=== PATIENT | male | born 1995 | race African-American/Black ===

== ENCOUNTER 2018-01-15 11:44 | Emergency (ER) | payer BC, OTHER ==
[~2018-01-15] VITALS: Ht 172.7 cm; Wt 52.2 kg
[2018-01-15 12:03] VITALS: BP 129/69
--- NOTE | 2018-01-15 12:29 | Emergency Room Report ---
History of Present Illness General Chief Complaint: Abdominal Pain Source: Patient Present Illness HPI 22-year-old male patient presents to ER complaining of vomiting and abdominal pain since Monday. Patient reports that he has had similar symptoms intermittently since last July. Patient reports that he was seen at [facility] on Monday for similar symptoms, states she was given morphine for pain, was discharged with diagnosis of colitis and not given any medications to go home with; states was previously seen in [facility] prior to Monday and discharged with diagnosis at that time. reports had labs drawn at that time and were negative. Patient reports that he schedule an appointment with his primary care physician on the of january. Patient reports vomiting, diarrhea, denies any blood in his vomit or stool. Patient reports not being able to eat secondary to symptoms. Patient reports no history of acid reflux. Patient reports symptoms usually begin after eating spicy foods. denies fever, chest pain, shortness of breath. reports last episode of vomiting this morning. denies dysuria, hematuria. patient denies history of STI, currently in a monogamous with single partner. denies penile discharge testicular pain or swelling. Allergies: Coded Allergies: No Known Allergies (Unverified , 01/15/18) Patient History Past Medical History: see triage record Reviewed Nursing Documentation: PMH: Agreed; PSxH: Agreed Nursing Documentation-PMH Hx Gastrointestinal Problems: Yes - Collitis Review of Systems All Other Systems: negative except mentioned in HPI Physical Exam Vital Signs Date Time Temp Pulse Resp B/P (MAP) Pulse Ox O2 Delivery O2 Flow Rate FiO2 01/15/18 11:53 98.6 66 18 131/70 99 Room Air 98.6 Sp02 EP Interpretation: reviewed, normal General Appearance: well appearing, no apparent distress, alert, GCS 15, non- toxic Head: normocephalic, atraumatic Eyes: bilateral eye normal inspection, bilateral eye PERRL ENT: hearing grossly normal, normal pharynx, no angioedema, normal voice, uvula midline, moist mucus membranes Neck: full range of motion Respiratory: lungs clear, normal breath sounds, no rhonchi, no respiratory distress, no accessory muscle use, no wheezing, speaking full sentences Cardiovascular #1: regular rate, rhythm, no edema Gastrointestinal: soft, no mass, non-distended, no guarding, no rebound, tenderness - RUQ, other - negative Rovsing, negative Obutrator, negative Danielle Genitourinary: no CVA tenderness Musculoskeletal: back normal, digits/nails normal, gait/station normal, normal range of motion, non-tender Neurologic: alert, oriented x3, responsive, motor strength/tone normal, sensory intact Psychiatric: mood/affect normal Skin: no rash Medical Decision Making PA Attestation Dr. Osorio is my supervising Physician whom patient management has been discussed with. Diagnostic Impression: Primary Impression: Urinary tract infection Additional Impression: Vomiting ER Course Pt. presents to the ED c/o abdominal pain. Ddx considered but are not limited to cholelithiasis, cholecystitis, pancreatitis, GERD, colitis. Begin abdominal pain workup. Provided patient with pain medication. negative Rovsing, negative obturator low suspicion for appendicitis. Patient complaining of right upper quadrant pain, tenderness to palpation, negative Danielle sign, ultrasound to rule out underlying etiology. Vital signs: are WNL, pt. is afebrile ORDERS: Ordered labs, US of gallbladder. Ordered GI cocktail, Zofran and Toradol for pain. ER COURSE: CBC unremarkable, no elevation in WBC. CMP unremarkable, no elevation in liver enzymes. Lipase WNL UA positive for 5-10 WBCs, leukocyte esterase, occasional bacteria and squamous epithelial cells, will provide tx for UTI. Discussed laboratory results with patient, no elevation in liver enzymes., no elevation in WBC, lipase WNL. Informed patient that due to relief of symptoms and negative labs, ultrasound of gallbladder may not be required at this time. Discussed with patient, patient OK to not have US performed at this time, will follow up outpatient for treatment and imaging. patient is okay with receiving outpatient imaging.. Pt.will follow up at scheduled appointment. Patient instructed to follow-up with physician and discuss referral to GI. Patient may have underlying etiology such as GERD or IBS. Patient needs further follow-up and diagnosis with specialist. patient reports understanding and agreement treatment plan. Advised on BRAT diet. Avoid spicy foods. Patient reports relief of pain symptoms with medication. If concern for STI go to STI clinic for further testing and treatment, patient denies concern for STI at this time Patient resting comfortably in bed, ready for discharge, nontoxic appearing, texting on phone, talking without difficulty. Patient currently resting in bed, in no acute distress. Patient reports feeling better. DISCHARGE: Rx provided for Zofran for nausea Rx provided for Tylenol for pain Rx provided for Macrobid for UTI At this time pt. is stable for d/c to home. patient is resting comfortably, no acute distress, nontoxic-appearing, talking and breathing without difficulty. Rx provided to patient. Patient to take medications as instructed Will provide with patient care instructions and any necessary prescriptions. Care plan and follow-up instructions provided. Patient instructed to follow-up with primary care provider in 3 - 5 days. Patient questions asked and answered. ER precautions given. Patient instructed to return to ER immediately for any new or worsening of symptoms including but not limited to increasing SOB, persistent fever, worsening of pain symptoms, intractable vomiting, blood in stool, urine, and/or emesis. - Please note that this Emergency Department Report was dictated using [employer] sales professional technology software, occasionally this can lead to erroneous entry secondary to interpretation by the dictation equipment. Labs Test 01/15/18 12:40 01/15/18 13:20 White Blood Count 7.2 K/UL (4.8-10.8) Red Blood Count 4.62 M/UL (4.70-6.10) Hemoglobin 13.8 G/DL (14.2-18.0) Hematocrit 40.7 % (42.0-52.0) Mean Corpuscular Volume 88 FL (80-99) Mean Corpuscular Hemoglobin 30.0 PG (27.0-31.0) Mean Corpuscular Hemoglobin Concent 34.0 G/DL (32.0-36.0) Red Cell Distribution Width 11.0 % (11.6-14.8) Platelet Count 220 K/UL (150-450) Mean Platelet Volume 8.9 FL (6.5-10.1) Neutrophils (%) (Auto) 78.6 % (45.0-75.0) Lymphocytes (%) (Auto) 12.0 % (20.0-45.0) Monocytes (%) (Auto) 9.0 % (1.0-10.0) Eosinophils (%) (Auto) 0.0 % (0.0-3.0) Basophils (%) (Auto) 0.5 % (0.0-2.0) Sodium Level 136 MMOL/L (136-145) Potassium Level 3.7 MMOL/L (3.5-5.1) Chloride Level 99 MMOL/L (98-107) Carbon Dioxide Level 25 MMOL/L (21-32) Anion Gap 12 mmol/L (5-15) Blood Urea Nitrogen 6 mg/dL (7-18) Creatinine 1.0 MG/DL (0.55-1.30) Estimat Glomerular Filtration Rate > 60 mL/min (>60) Glucose Level 94 MG/DL (74-106) Calcium Level 9.4 MG/DL (8.5-10.1) Total Bilirubin 0.9 MG/DL (0.2-1.0) Aspartate Amino Transf (AST/SGOT) 30 U/L (15-37) Alanine Aminotransferase (ALT/SGPT) 42 U/L (12-78) Alkaline Phosphatase 79 U/L (46-116) Total Protein 8.2 G/DL (6.4-8.2) Albumin 4.3 G/DL (3.4-5.0) Globulin 3.9 g/dL Albumin/Globulin Ratio 1.1 (1.0-2.7) Lipase 105 U/L (73-393) Urine Color Yellow Urine Appearance Clear Urine pH 6 (4.5-8.0) Urine Specific [place] 1.025 (1.005-1.035) Urine Protein 2+ (NEGATIVE) Urine Glucose (UA) Negative (NEGATIVE) Urine Ketones 4+ (NEGATIVE) Urine Occult Blood Negative (NEGATIVE) Urine Nitrite Negative (NEGATIVE) Urine Bilirubin Negative (NEGATIVE) Urine Urobilinogen 1 MG/DL (0.0-1.0) Urine Leukocyte Esterase 2+ (NEGATIVE) Urine RBC 0 /HPF (0 - 0) Urine WBC 5-10 /HPF (0 - 0) Urine Squamous Epithelial Cells Occasional /LPF Urine Bacteria Occasional /HPF (NONE) Urine Mucus Few /LPF (NONE/OCC) CT/MRI/US Diagnostic Results CT/MRI/US Diagnostic Results : Imaging Test Ordered: US gallbladder Last Vital Signs Date Time Temp Pulse Resp B/P (MAP) Pulse Ox O2 Delivery O2 Flow Rate FiO2 01/15/18 11:53 98.6 66 18 131/70 99 Room Air 98.6 Disposition: HOME, SELF-CARE Condition: Stable Scripts Nitrofurantoin Monohyd/M-Cryst* (MACROBID 100 MG*) 100 Mg Capsule 100 MG ORAL EVERY 12 HOURS for 7 Days, #14 CAP Prov: Solitario Aquino 01/15/18 Ondansetron* (ZOFRAN*) 4 Mg Tablet 4 MG ORAL Q6H PRN for Nausea & Vomiting, #4 TAB Prov: Solitario Aquino 01/15/18 Acetaminophen* (TYLENOL EXTRA STRENGTH*) 500 Mg Tablet 500 MG ORAL Q8H PRN for Prn Headache/Temp > 101, #30 TAB 0 Refills Prov: Solitario Aquino 01/15/18 Patient Instructions: Gastritis, Adult, Gastroesophageal Reflux Disease, Adult , Nausea and Vomiting, Adult, [id number], Urinary Tract Infection, Easy-to- Read Additional Instructions: Followup with primary care provide for further treatment and discuss referral to GI. Keep food journal of foods eaten and times of symptom onset. Take medications as directed. Patient questions asked and answered. ER precautions given, patient instructed to return to ER immediately for any new or worsening of symptoms including but not limited to chest pain, SOB, abdominal pain, blood in vomit. Drink fluids as tolerated to prevent dehydration. Take Tylenol OTC for pain, easier on stomach. Avoid spicy foods, avoid dairy. Do not eat late night meals. Elevate head of bed when sleeping. BRAT diet: bananas, rice, apple sauce, toast. Solitario Aquino Jan 15, 2018 12:29
[2018-01-15] MEDS ORDERED: Mylanta II UD 30ml ORAL ONE (12:30)
[2018-01-15] MEDS ORDERED: Ketorolac 60mg Inj IM ONE (12:30)
[2018-01-15] MEDS ORDERED: Dicyclomine HCl 10mg/5ml oral soln ORAL ONE (12:30)
[2018-01-15] MEDS ORDERED: Lidocaine 2% Visc 15ml soln ORAL ONE (12:30)
[2018-01-15 12:53] LABS: BASOPHILS % (AUTO) 0.5 % (0.0-2.0); HEMATOCRIT 40.7 % (42.0-52.0); HEMOGLOBIN 13.8 G/DL (14.2-18.0); MEAN CORPUSCULAR VOLUME 88 FL (80-99); NEUTROPHILS % (AUTO) 78.6 % (45.0-75.0); PLATELET COUNT 220 K/UL (150-450); RED BLOOD COUNT 4.62 M/UL (4.70-6.10); WHITE BLOOD COUNT 7.2 K/UL (4.8-10.8)
[2018-01-15 13:05] LABS: ANION GAP 12 mmol/L (5-15); BLOOD UREA NITROGEN 6 mg/dL (7-18); CALCIUM 9.4 MG/DL (8.5-10.1); CARBON DIOXIDE 25 MMOL/L (21-32); CHLORIDE 99 MMOL/L (98-107); POTASSIUM 3.7 MMOL/L (3.5-5.1); SODIUM 136 MMOL/L (136-145)
[2018-01-15 13:10] LABS: ALANINE AMINOTRANSFERASE 42 U/L (12-78); ALBUMIN 4.3 G/DL (3.4-5.0); ALBUMIN/GLOBULIN RATIO 1.1 (1.0-2.7); ALKALINE PHOSPHATASE 79 U/L (46-116); ASPARTATE AMINO TRANSFERASE 30 U/L (15-37); BILIRUBIN,TOTAL 0.9 MG/DL (0.2-1.0)
[2018-01-15 13:36] LABS: APPEARANCE,URINE CLEAR; BILIRUBIN, URINE NEGATIVE (NEGATIVE); GLUCOSE, URINE (UA) NEGATIVE (NEGATIVE); KETONES,URINE 4+ (NEGATIVE); LEUKOCYTE ESTERASE ,URINE 2+ (NEGATIVE); NITRITE,URINE NEGATIVE (NEGATIVE); PH,URINE 6 (4.5-8.0); PROTEIN,URINE 2+ (NEGATIVE); UROBILINOGEN,URINE 1 MG/DL (0.0-1.0)
[2018-01-15 13:46] LABS: COLOR,URINE YELLOW
[2018-01-15] MEDS ORDERED: ZOFRAN4 M3 ORAL (14:15)
[2018-01-15] MEDS ORDERED: TYLENOL EXTRA500 MG ORAL (14:15)
[2018-01-15] MEDS ORDERED: NITROFURANTOIN100 M2 ORAL (14:15)
[2018-01-15 15:35] VITALS: BP 134/77
[2018-01-15 15:40] VITALS: BP 129/69
== END 2018-01-15 16:06 | disposition home or self-care (01) ==
LOC: EMR 12:31
DX: N39.0 Urinary tract infection, site not specified (principal); R11.10 Vomiting, unspecified
CPT/HCPCS: 36415; 80053; 81003; 83690; 85025; 96372; 96374; 99284

== ENCOUNTER 2018-04-12 12:28 | Emergency (ER) | payer SELFPAY ==
[~2018-04-12] VITALS: Ht 172.7 cm; Wt 49.9 kg
[~2018-04-12 12:28] MED LIST: NITROFURANTOIN100 M2 ORAL; TYLENOL EXTRA500 MG ORAL; ZOFRAN4 M3 ORAL
[2018-04-12] MEDS ORDERED: Isovue-300 100ml vial INJ PRN (13:00)
--- NOTE | 2018-04-12 13:07 | Emergency Room Report ---
History of Present Illness General Chief Complaint: Vomiting Source: Patient Present Illness HPI 22-year-old male presents to the emergency department complaining of 10 out of 10 in severity abdominal pain with N/V and some tenderness 2 days. Patient reports history of colitis denies diarrhea and reports constipation. Last bowel movement was on Monday. Patient denies blood in the vomit or stool and he denies black tarry stools. Patient estimates that he has vomited approximately 3 times today. Patient reports tenderness primarily in the left lower quadrant but is also diffuse across the abdomen. Patient denies fevers, reports chills. He denies recent travel or ill contacts. Allergies: Coded Allergies: No Known Allergies (Unverified , 01/15/18) Patient History Past Medical History: see triage record, other - colitis Past Surgical History: none Pertinent Family History: none Immunizations: UTD Reviewed Nursing Documentation: PMH: Agreed; PSxH: Agreed Nursing Documentation-PM Past Medical History: No History, Except For Hx Gastrointestinal Problems: Yes - Collitis Review of Systems All Other Systems: negative except mentioned in HPI Physical Exam Vital Signs Date Time Temp Pulse Resp B/P (MAP) Pulse Ox O2 Delivery O2 Flow Rate FiO2 04/12/18 12:32 98.3 67 18 130/71 98 Room Air 98.2 Sp02 EP Interpretation: reviewed, normal General Appearance: alert, GCS 15, non-toxic, mild distress, thin Head: normocephalic, atraumatic Eyes: bilateral eye normal inspection, bilateral eye PERRL ENT: hearing grossly normal, normal voice Neck: full range of motion Respiratory: lungs clear, normal breath sounds, speaking full sentences Cardiovascular #1: regular rate, rhythm, normal capillary refill Gastrointestinal: normal bowel sounds, soft, non-distended, no guarding, tenderness - diffuse but primarily in the LLQ Rectal: deferred Genitourinary: normal inspection, no CVA tenderness Musculoskeletal: back normal, gait/station normal, normal range of motion, non- tender Neurologic: alert, oriented x3, responsive, motor strength/tone normal, sensory intact, normal gait, speech normal, grossly normal Psychiatric: judgement/insight normal Skin: normal color, no rash, warm/dry, well hydrated Medical Decision Making PA Attestation Dr. Curry is my supervising physician whom pt. management has been discussed with. Diagnostic Impression: Primary Impression: Abdominal pain Qualified Codes: R10.84 - Generalized abdominal pain Additional Impressions: Vomiting Qualified Codes: R11.2 - Nausea with vomiting, unspecified Gastroenteritis ER Course 22-year-old male presents to the emergency department complaining of 10 out of 10 in severity abdominal pain with N/V and some tenderness 2 days. Patient reports history of colitis denies diarrhea and reports constipation. Last bowel movement was on Monday. Patient denies blood in the vomit or stool and he denies black tarry stools. Patient estimates that he has vomited approximately 3 times today. Patient reports tenderness primarily in the left lower quadrant but is also diffuse across the abdomen. Patient denies fevers, reports chills. He denies recent travel or ill contacts. Ddx considered but are not limited to Diverticulitis, acute appy, diarrhea,UC, PUD, GE, pancreatitis, gallstone, colitis, diverticulitis/losis, electrolyte imbalance, dehydration. Vital signs: are WNL, pt. is afebrile H&PE are most consistent with possible colitis exacerbation, will perform Labs and imaging to r/o more serious causes. PE: Diffuse tenderness, abdomen is soft , normal BS in all 4 quadrants, LLQ most tender. ORDERS: -CBC, CMP, lipase: unremarkable -UA:unremarkable ED INTERVENTIONS: -- 1000NS, -Zofran IV 4 mg - Pepcid IV 20mg Pt. able to tolerate oral fluids. Reports improvement of symptoms after ED interventions. pt. is given strict ED return precautions for worsening or new symptoms. otherwise to follow up with Pcp DISCHARGE: At this time pt. is stable for d/c to home. Will provide printed patient care instructions, and any necessary prescriptions. Care plan and follow up instructions have been discussed with the patient prior to discharge. Labs Test 04/12/18 12:47 04/12/18 13:00 04/12/18 14:40 Sodium Level 137 MMOL/L (136-145) Potassium Level 3.6 MMOL/L (3.5-5.1) Chloride Level 100 MMOL/L (98-107) Carbon Dioxide Level 24 MMOL/L (21-32) Anion Gap 13 mmol/L (5-15) Blood Urea Nitrogen 13 mg/dL (7-18) Creatinine 0.9 MG/DL (0.55-1.30) Estimat Glomerular Filtration Rate > 60 mL/min (>60) Glucose Level 98 MG/DL (74-106) Calcium Level 9.9 MG/DL (8.5-10.1) Total Bilirubin 0.9 MG/DL (0.2-1.0) Aspartate Amino Transf (AST/SGOT) 28 U/L (15-37) Alanine Aminotransferase (ALT/SGPT) 32 U/L (12-78) Alkaline Phosphatase 65 U/L (46-116) Total Protein 8.7 G/DL (6.4-8.2) Albumin 4.3 G/DL (3.4-5.0) Globulin 4.4 g/dL Albumin/Globulin Ratio 1.0 (1.0-2.7) Lipase 146 U/L (73-393) White Blood Count 6.0 K/UL (4.8-10.8) Red Blood Count 5.08 M/UL (4.70-6.10) Hemoglobin 14.1 G/DL (14.2-18.0) Hematocrit 42.8 % (42.0-52.0) Mean Corpuscular Volume 84 FL (80-99) Mean Corpuscular Hemoglobin 27.7 PG (27.0-31.0) Mean Corpuscular Hemoglobin Concent 32.9 G/DL (32.0-36.0) Red Cell Distribution Width 11.3 % (11.6-14.8) Platelet Count 242 K/UL (150-450) Mean Platelet Volume 8.3 FL (6.5-10.1) Neutrophils (%) (Auto) 53.4 % (45.0-75.0) Lymphocytes (%) (Auto) 33.2 % (20.0-45.0) Monocytes (%) (Auto) 11.8 % (1.0-10.0) Eosinophils (%) (Auto) 0.6 % (0.0-3.0) Basophils (%) (Auto) 1.1 % (0.0-2.0) Urine Color Yellow Urine Appearance Clear Urine pH 6 (4.5-8.0) Urine Specific [place] 1.025 (1.005-1.035) Urine Protein 1+ (NEGATIVE) Urine Glucose (UA) Negative (NEGATIVE) Urine Ketones 3+ (NEGATIVE) Urine Occult Blood Negative (NEGATIVE) Urine Nitrite Negative (NEGATIVE) Urine Bilirubin Negative (NEGATIVE) Urine Urobilinogen 1 MG/DL (0.0-1.0) Urine Leukocyte Esterase 1+ (NEGATIVE) Urine RBC 0-2 /HPF (0 - 0) Urine WBC 2-4 /HPF (0 - 0) Urine Squamous Epithelial Cells Few /LPF (NONE/OCC) Urine Bacteria Few /HPF (NONE) CT/MRI/US Diagnostic Results CT/MRI/US Diagnostic Results : Imaging Test Ordered: CT Abdoment and Pelvis with IV and Oral Contrast Impression "Impression is essentially unremarkable exam. No acute or significant abnormality demonstrated." Per official radiology report- Please see report for specific details. Last Vital Signs Date Time Temp Pulse Resp B/P (MAP) Pulse Ox O2 Delivery O2 Flow Rate FiO2 04/12/18 12:32 98.3 67 18 130/71 98 Room Air 98.2 Disposition: HOME, SELF-CARE Condition: Stable Scripts Ondansetron* (ZOFRAN*) 4 Mg Tablet 4 MG ORAL Q6H PRN for Nausea & Vomiting, #15 TAB Prov: Sydney Chowdhury 04/12/18 Docusate Sodium* (COLACE*) 100 Mg Capsule 100 MG ORAL THREE TIMES A DAY, #30 CAP Prov: Sydney Chowdhury 04/12/18 Lidocaine HCl 2% Viscous (Lidocaine HCl 2% Viscous) 100 Ml Solution 15 ML ORAL QID, #200 ML Prov: Sydney Chowdhury 04/12/18 Referrals: NOT CHOSEN IPA/MD,REFERRING (PCP) Departure Forms: Return to Work Return to Work Date: Apr 14, 2018 Work Restrictions: None Other Restrictions: please excuse from monday, symptoms have been intermittent. Return to Full Activity: Apr 14, 2018 Patient Instructions: Nausea and Vomiting, Adult Additional Instructions: Take medications as directed. Follow up with a Primary Care Provider in 3days, even if your symptoms have resolved. --Please review list of primary care clinics, if you do not already have a primary care provider Return sooner to ED if new symptoms occur, or current symptoms become worse. - Please note that this Emergency Department Report was dictated using [employer] technology software, occasionally this can lead to erroneous entry secondary to interpretation by the dictation equipment. Sydney Chowdhury Apr 12, 2018 13:07
[2018-04-12 13:08] LABS: BASOPHILS % (AUTO) 1.1 % (0.0-2.0); EOSINOPHILS % (AUTO) 0.6 % (0.0-3.0); HEMATOCRIT 42.8 % (42.0-52.0); HEMOGLOBIN 14.1 G/DL (14.2-18.0); LYMPHOCYTES % (AUTO) 33.2 % (20.0-45.0); MEAN CORPUSCULAR VOLUME 84 FL (80-99); MONOCYTES % (AUTO) 11.8 % (1.0-10.0); NEUTROPHILS % (AUTO) 53.4 % (45.0-75.0); PLATELET COUNT 242 K/UL (150-450); RED BLOOD COUNT 5.08 M/UL (4.70-6.10); RED CELL DISTRIBUTION WIDTH 11.3 % (11.6-14.8)
[2018-04-12] MEDS ORDERED: Morphine Sulfate 4mg/ml Inj IVP ONE (13:15)
[2018-04-12 13:23] VITALS: BP 101/79
[2018-04-12 13:32] LABS: ANION GAP 13 mmol/L (5-15); BLOOD UREA NITROGEN 13 mg/dL (7-18); CALCIUM 9.9 MG/DL (8.5-10.1); CARBON DIOXIDE 24 MMOL/L (21-32); CHLORIDE 100 MMOL/L (98-107); CREATININE 0.9 MG/DL (0.55-1.30); POTASSIUM 3.6 MMOL/L (3.5-5.1); SODIUM 137 MMOL/L (136-145)
[2018-04-12 13:37] LABS: ALANINE AMINOTRANSFERASE 32 U/L (12-78); ALBUMIN 4.3 G/DL (3.4-5.0); ALKALINE PHOSPHATASE 65 U/L (46-116); ASPARTATE AMINO TRANSFERASE 28 U/L (15-37); BILIRUBIN,TOTAL 0.9 MG/DL (0.2-1.0)
[2018-04-12 15:26] LABS: APPEARANCE,URINE CLEAR; BILIRUBIN, URINE NEGATIVE (NEGATIVE); GLUCOSE, URINE (UA) NEGATIVE (NEGATIVE); KETONES,URINE 3+ (NEGATIVE); LEUKOCYTE ESTERASE ,URINE 1+ (NEGATIVE); NITRITE,URINE NEGATIVE (NEGATIVE); PH,URINE 6 (4.5-8.0); PROTEIN,URINE 1+ (NEGATIVE); UROBILINOGEN,URINE 1 MG/DL (0.0-1.0)
[2018-04-12 15:30] LABS: COLOR,URINE YELLOW
--- NOTE | 2018-04-12 17:10 | Diagnostic Imaging Report ---
Clinical Indication: Left lower quadrant abdominal pain, nausea, vomiting x3 days Technique: Patient given oral contrast. IV administration nonionic contrast. Venous phase spiral acquisition obtained through the abdomen and pelvis. Multiplanar reconstructions were generated. Total dose length product 420.99 mGycm. CTDIvol(s) 8.53 mGy. Dose reduction achieved using automated exposure control Comparison: none Findings: Bowel loops are well opacified. What may be a normal gas-filled appendix is equivocal visualized; no definite findings to suggest acute appendicitis are evident. No evidence of diverticulosis or diverticulitis. No small bowel distention or small bowel wall thickening. The distal esophagus, stomach, duodenum are unremarkable. The gallbladder, liver, bile ducts, pancreas, spleen, adrenals, kidneys are all unremarkable. No pelvic mass or adenopathy. No mesenteric or retroperitoneal mass or adenopathy. The included lung bases are clear. The bones are unremarkable. Impression: Essentially unremarkable exam. No acute or significant abnormality demonstrated Only equivocal visualization of normal appendix, but no findings to suggest acute appendicitis The CT scanner at [facility] is accredited by the [employer] and the scans are performed using protocols designed to limit radiation exposure to as low as reasonably achievable to attain images of sufficient resolution adequate for diagnostic evaluation.
[2018-04-12] MEDS ORDERED: LIDOCAINE VISC100 ML ORAL (17:26)
[2018-04-12] MEDS ORDERED: ZOFRAN4 M3 ORAL (17:26)
[2018-04-12] MEDS ORDERED: COLACE100 MG ORAL (17:26)
[2018-04-12] MEDS ORDERED: Mylanta II UD 30ml ORAL ONE (17:30)
[2018-04-12] MEDS ORDERED: Lidocaine 2% Visc 15ml soln ORAL ONE (17:30)
[2018-04-12 17:38] VITALS: BP 107/77
== END 2018-04-12 17:39 | disposition home or self-care (01) ==
LOC: EMR 12:52
DX: K52.9 Noninfective gastroenteritis and colitis, unspecified (principal); R11.2 Nausea with vomiting, unspecified
CPT/HCPCS: 36415; 74177; 80053; 81003; 83690; 85025; 99284; J2270; J2405; Q9967; S0028

== ENCOUNTER 2018-08-17 09:14 | Emergency (ER) | payer SELFPAY ==
[~2018-08-17] VITALS: Ht 172.7 cm; Wt 53.5 kg
[~2018-08-17 09:14] MED LIST changes: +COLACE100 MG ORAL; +LIDOCAINE VISC100 ML ORAL
--- NOTE | 2018-08-17 09:43 | Emergency Room Report ---
History of Present Illness General Chief Complaint: Abdominal Pain Source: Patient Present Illness HPI Patient just with complaints of epigastric abdominal pain Cramping sensation involving vomiting and diarrhea Symptoms ongoing since last Monday Denies any chest pain denies any fevers or chills Patient has had multiple episodes of this abdominal pain in the past Patient's girlfriend also provided some input There was no reports of fevers Patient has not seen a specialist for the abdominal pain he had He does report frequent marijuana use Allergies: Coded Allergies: No Known Allergies (Unverified , 01/15/18) Patient History Past Medical History: see triage record Pertinent Family History: none Reviewed Nursing Documentation: PMH: Agreed; PSxH: Agreed Nursing Documentation-PMH Hx Gastrointestinal Problems: Yes - Collitis Review of Systems All Other Systems: negative except mentioned in HPI Physical Exam Vital Signs Date Time Temp Pulse Resp B/P (MAP) Pulse Ox O2 Delivery O2 Flow Rate FiO2 08/17/18 09:19 98.2 82 20 123/78 98 Room Air Sp02 EP Interpretation: reviewed, normal General Appearance: other - Upon initial arrival the patient is ambulate without any focal deficit or discomfort, upon initial evaluation patient appears to be grimacing and uncomfortable Head: normocephalic, atraumatic Eyes: bilateral eye PERRL, bilateral eye EOMI ENT: normal pharynx Neck: full range of motion, supple Respiratory: lungs clear, no respiratory distress, no retraction Cardiovascular #1: regular rate, rhythm Gastrointestinal: soft, other - With slight placement of the stethoscope for all sounds patient expresses discomfort and grimaces, otherwise the abdomen itself is soft with appropriate bowel sounds Musculoskeletal: normal inspection Neurologic: alert, oriented x3, responsive Skin: normal color, no rash Lymphatic: no adenopathy Medical Decision Making Diagnostic Impression: Primary Impression: Abdominal pain Additional Impression: Adverse reaction to cannabis ER Course With the history exam and presentation, multiple differentials considered, including but not limited to appendicitis, gastritis, cholecystitis, diverticulitis Patient's lower abdomen is nontender without any evidence of clinical appendicitis Patient does not appear dehydrated Was provided with antibiotics After repeat evaluation patient remains medically stable patient has had previous extensive workup At this time the exam does not reveal any acute pathology And patient stable for close outpatient follow-up Last Vital Signs Date Time Temp Pulse Resp B/P (MAP) Pulse Ox O2 Delivery O2 Flow Rate FiO2 08/17/18 09:19 98.2 82 20 123/78 98 Room Air Status: improved Disposition: HOME, SELF-CARE Condition: Improved Scripts Ondansetron (Zofran) 4 Mg Tablet 4 MG ORAL Q8HR PRN for Nausea & Vomiting, #12 TAB Prov: Kalin Osorio DO 08/17/18 Referrals: NOT CHOSEN IPA/MD,REFERRING (PCP) Additional Instructions: Patient is provided with the discharge instructions notified to follow up with primary doctor in the next 2-3 days otherwise return to the er with any worsening symptoms. Please note that this report is being documented using [employer] technology. This can lead to erroneous entry secondary to incorrect interpretation by the dictating instrument. Kalin Osorio DO Aug 17, 2018 09:43
[2018-08-17 09:44] VITALS: BP 109/63
[2018-08-17] MEDS ORDERED: ZOFRAN4 M1 ORAL (10:02)
[2018-08-17 10:09] VITALS: BP 112/65
[2018-08-17 10:12] VITALS: BP 112/65
== END 2018-08-17 10:15 | disposition home or self-care (01) ==
LOC: EMR 09:35
DX: R10.13 Epigastric pain (principal); T40.7X5A Adverse effect of cannabis (derivatives), initial encounter; R19.7 Diarrhea, unspecified; R11.10 Vomiting, unspecified; Z87.19 Personal history of other diseases of the digestive system
CPT/HCPCS: 99282

== ENCOUNTER 2019-08-21 07:50 | Emergency (ER) | payer MEDICAID, OTHER ==
[~2019-08-21] VITALS: Ht 172.7 cm; Wt 52.2 kg
[~2019-08-21 07:50] MED LIST changes: +ZOFRAN4 M1 ORAL
[2019-08-21] MEDS ORDERED: Omnipaque-300 100ml vial INJ PRN (08:15)
[2019-08-21] MEDS ORDERED: Morphine Sulfate 2mg/ml Inj(IV/IM USE ONLY) IVP ONE (08:15)
--- NOTE | 2019-08-21 08:16 | Emergency Room Report ---
History of Present Illness General Chief Complaint: Abdominal Pain Source: Patient Present Illness HPI 24-year-old male with self-reported history of ulcerative colitis, never diagnosed via colonoscopy or biopsy, just reports he has been to ERs where he told he might have it, comes to the ER with complaints of having nonradiating epigastric area burning type pain intermittently for the last week, got worse last night and he started having associated vomiting this morning 3 episodes of yellowish material. He denies any rectal bleeding, diarrhea, constipation, coffee-ground emesis, fevers, shortness of breath, genitourinary complaints. He reports he feels better when he takes hot showers, and is tried Pepto-Bismol and Tylenol without relief. Does reports he thinks symptoms may be triggered by smoking marijuana, but denies any drug use otherwise, and no alcohol use. Allergies: Coded Allergies: No Known Allergies (Unverified , 01/15/18) Patient History Past Medical History: see triage record Past Surgical History: none Pertinent Family History: other - No family history of inflammatory bowel disease Social History: Reports: smoking Reviewed Nursing Documentation: PMH: Agreed; PSxH: Agreed Nursing Documentation-PMH Past Medical History: No History, Except For Hx Gastrointestinal Problems: Yes - Collitis Review of Systems All Other Systems: negative except mentioned in HPI Physical Exam Vital Signs Date Time Temp Pulse Resp B/P (MAP) Pulse Ox O2 Delivery O2 Flow Rate FiO2 08/21/19 07:56 97.5 69 22 137/81 (99) 100 Room Air Sp02 EP Interpretation: reviewed, normal General Appearance: alert, non-toxic, mild distress Head: normocephalic Eyes: bilateral eye normal inspection, bilateral eye PERRL, bilateral eye EOMI ENT: normal ENT inspection, hearing grossly normal, normal pharynx, no angioedema, normal voice, moist mucus membranes Neck: normal inspection, full range of motion, supple, supple/symm/no masses Respiratory: chest non-tender, lungs clear, normal breath sounds, chest symmetrical, palpation of chest normal Cardiovascular #1: normal peripheral pulses, regular rate, rhythm Cardiovascular #2: 2+ radial (R), 2+ radial (L), 2+ dorsalis pedis (R), 2+ dorsalis pedis (L) Gastrointestinal: normal inspection, soft, no mass, no guarding, no rebound, tenderness - soft, but mild epigastric tenderness, negative alex's sign, no focal RUQ tenderness or lower abd tenderness Rectal: deferred Genitourinary: normal inspection, no CVA tenderness, penis normal, scrotum normal Musculoskeletal: back normal, normal range of motion, no calf tenderness, gait/ station normal, non-tender Neurologic: alert, motor strength/tone normal, glass artist III-XII nml as tested, sensory intact, responsive, speech normal Psychiatric: judgement/insight normal, memory normal, mood/affect normal Lymphatic: no adenopathy Medical Decision Making Diagnostic Impression: Primary Impression: Abdominal pain Additional Impressions: Adverse reaction to cannabis Pancreatitis ER Course Patient with self-reported history of ulcerative colitis, given morphine, fluids , Compazine for pain. Given that patient has never been diagnosed with ulcerative colitis, and he has only had ER evaluations for his abdominal pain, I have very low suspicion that he truly has ulcerative colitis. He also has never had any abdominal surgeries, and I do not suspect an obstruction, appendicitis, or other emergent pathology. He has a normal testicle and genital exam as well. Patient had mild diffuse tenderness of his lower abdomen , but no focal tenderness. Patient's records were reviewed, 1 year ago he was here with similar complaints, and had a normal set of labs as well as abdomen pelvis CT at that time in 2018. He has a slightly elevated lipase level in the 600 range, but his presentation is fairly benign, and he has much improvement after getting 2 mg of morphine, 1 L of normal saline, and 10 mg of Compazine. After seeing the elevated lipase ordered a second liter normal saline bolus and an abdominal ultrasound as well. US was normal. Differential diagnosis includes but is not limited to appendicitis, bowel obstruction, acute cholecystitis, pancreatitis, cannabinoid hyperemesis syndrome Based on history, physical exam, ancillary studies, and review of records, as well as overall clinical picture, I suspect cannabinoid hyperemesis syndrome, I have counseled patient on avoidance of marijuana products, and will discharge with return to ER instructions for increasing pain, fevers, persistent vomiting , any new symptoms. Patient feels much better since his initial arrival, and wants to go home, I did offer him admission for mild pancreatitis, but based on my assessment and patient's preference, he is stable to be discharged home and will return for increasing pain or persistent vomiting. He is here with his family member and they both seem very reliable, and understand return precautions, otherwise he is to follow-up with his primary care doctor in the next 1-2d. Rhythm Strip Diag. Results Rhythm Strip Time: 08:18 EP Interpretation: yes Rate: 85 Rhythm: NSR, no PVC's, no ectopy CT/MRI/US Diagnostic Results CT/MRI/US Diagnostic Results : Imaging Test Ordered: Right upper quadrant ultrasound Last Vital Signs Date Time Temp Pulse Resp B/P (MAP) Pulse Ox O2 Delivery O2 Flow Rate FiO2 08/21/19 07:56 97.5 69 22 137/81 (99) 100 Room Air Disposition: HOME, SELF-CARE Condition: Stable EVARISTO ALAS M.D Aug 21, 2019 08:16
[2019-08-21 08:17] VITALS: BP 122/73
[2019-08-21 08:21] LABS: BASOPHILS % (AUTO) 1.8 % (0.0-2.0); HEMATOCRIT 46.4 % (42.0-52.0); HEMOGLOBIN 15.2 G/DL (14.2-18.0); LYMPHOCYTES % (AUTO) 29.9 % (20.0-45.0); MEAN CORPUSCULAR VOLUME 88 FL (80-99); MONOCYTES % (AUTO) 6.6 % (1.0-10.0); NEUTROPHILS % (AUTO) 60.7 % (45.0-75.0); PLATELET COUNT 263 K/UL (150-450); RED BLOOD COUNT 5.29 M/UL (4.70-6.10); RED CELL DISTRIBUTION WIDTH 11.3 % (11.6-14.8); WHITE BLOOD COUNT 7.5 K/UL (4.8-10.8)
[2019-08-21 08:58] LABS: ANION GAP 7 mmol/L (5-15); BLOOD UREA NITROGEN 9 mg/dL (7-18); CALCIUM 8.7 MG/DL (8.5-10.1); CARBON DIOXIDE 29 MMOL/L (21-32); CHLORIDE 101 MMOL/L (98-107); POTASSIUM 3.3 MMOL/L (3.5-5.1); SODIUM 137 MMOL/L (136-145)
[2019-08-21 08:59] LABS: ALANINE AMINOTRANSFERASE 27 U/L (12-78); ALBUMIN/GLOBULIN RATIO 1.1 (1.0-2.7); ALKALINE PHOSPHATASE 80 U/L (46-116); ASPARTATE AMINO TRANSFERASE 22 U/L (15-37); BILIRUBIN,TOTAL 0.5 MG/DL (0.2-1.0)
[2019-08-21 09:10] LABS: APPEARANCE,URINE CLEAR; BILIRUBIN, URINE NEGATIVE (NEGATIVE); COLOR,URINE PALE YELLOW; GLUCOSE, URINE (UA) NEGATIVE (NEGATIVE); KETONES,URINE 2+ (NEGATIVE); LEUKOCYTE ESTERASE ,URINE NEGATIVE (NEGATIVE); NITRITE,URINE NEGATIVE (NEGATIVE); PH,URINE 7 (4.5-8.0); PROTEIN,URINE NEGATIVE (NEGATIVE); UROBILINOGEN,URINE NORMAL MG/DL (0.0-1.0)
[2019-08-21 09:32] VITALS: BP 103/56
[2019-08-21] MEDS ORDERED: FAMOTIDINE20 MG ORAL (10:21)
[2019-08-21] MEDS ORDERED: ZOFRAN4 M1 ORAL (10:21)
[2019-08-21 10:30] VITALS: BP 103/56
--- NOTE | 2019-08-21 12:52 | Diagnostic Imaging Report ---
Indication: Abdominal pain Technique: Grayscale and duplex Doppler imaging of the abdomen performed. Comparison: None Findings: The liver is unremarkable. Doppler interrogation of the main portal vein shows patency with hepatopedal, monophasic flow. There is no biliary ductal dilatation identified. Gallbladder is unremarkable. CBD is 3 mm. There demonstrated part of the pancreas, aorta and IVC show no definite abnormalities. Both kidneys appear echogenic. There is no hydronephrosis. IMPRESSION: No acute findings Medical renal disease
== END 2019-08-21 10:30 | disposition home or self-care (01) ==
LOC: EMR 08:10 → CANBEDREQ 10:32
DX: R10.13 Epigastric pain (principal); T40.7X5A Adverse effect of cannabis (derivatives), initial encounter; K85.90 Acute pancreatitis without necrosis or infection, unspecified
CPT/HCPCS: 36415; 76700; 80053; 81003; 83690; 85025; 96361; 96374; 96375; J0780; J2270; J7030; Z7502; 99284

== ENCOUNTER 2020-02-27 15:41 | Emergency (ER) | payer OTHER ==
[~2020-02-27] VITALS: Ht 172.7 cm; Wt 52.2 kg
[~2020-02-27 15:41] MED LIST changes: +FAMOTIDINE20 MG ORAL
[2020-02-27 15:51] VITALS: BP 120/71
[2020-02-27] MEDS ORDERED: Omnipaque-300 100ml vial INJ PRN (16:00)
[2020-02-27] MEDS ORDERED: Morphine Sulfate 4mg/ml Inj (IV USE ONLY) IVP ONE (16:00)
[2020-02-27 16:27] LABS: BASOPHILS % (AUTO) 0.6 % (0.0-2.0); EOSINOPHILS % (AUTO) 0.1 % (0.0-3.0); HEMATOCRIT 44.2 % (42.0-52.0); HEMOGLOBIN 13.5 G/DL (14.2-18.0); LYMPHOCYTES % (AUTO) 11.6 % (20.0-45.0); MEAN CORPUSCULAR VOLUME 95 FL (80-99); MONOCYTES % (AUTO) 5.4 % (1.0-10.0); NEUTROPHILS % (AUTO) 82.4 % (45.0-75.0); PLATELET COUNT 220 K/UL (150-450); RED BLOOD COUNT 4.67 M/UL (4.70-6.10); RED CELL DISTRIBUTION WIDTH 12.2 % (11.6-14.8); WHITE BLOOD COUNT 7.6 K/UL (4.8-10.8)
[2020-02-27 16:28] LABS: ANION GAP 15 mmol/L (5-15); BLOOD UREA NITROGEN 9 mg/dL (7-18); CALCIUM 9.5 MG/DL (8.5-10.1); CARBON DIOXIDE 23 MMOL/L (21-32); CHLORIDE 99 MMOL/L (98-107); CREATININE 0.9 MG/DL (0.55-1.30); POTASSIUM 3.7 MMOL/L (3.5-5.1); SODIUM 137 MMOL/L (136-145)
[2020-02-27 16:31] LABS: APPEARANCE,URINE SLIGHTLY CLOUDY; BILIRUBIN, URINE NEGATIVE (NEGATIVE); GLUCOSE, URINE (UA) NEGATIVE (NEGATIVE); KETONES,URINE 4+ (NEGATIVE); LEUKOCYTE ESTERASE ,URINE 1+ (NEGATIVE); NITRITE,URINE NEGATIVE (NEGATIVE); PH,URINE 6 (4.5-8.0); PROTEIN,URINE 2+ (NEGATIVE); UROBILINOGEN,URINE NORMAL MG/DL (0.0-1.0)
[2020-02-27 16:33] LABS: ALANINE AMINOTRANSFERASE 28 U/L (12-78); ALBUMIN 4.3 G/DL (3.4-5.0); ALBUMIN/GLOBULIN RATIO 1.1 (1.0-2.7); ALKALINE PHOSPHATASE 76 U/L (46-116); ASPARTATE AMINO TRANSFERASE 35 U/L (15-37); BILIRUBIN,TOTAL 0.8 MG/DL (0.2-1.0)
[2020-02-27 16:34] LABS: COLOR,URINE YELLOW
--- NOTE | 2020-02-27 16:36 | Emergency Room Report ---
History of Present Illness General Chief Complaint: Abdominal Pain Source: Patient Present Illness HPI Disclaimer: Please note that this report is being documented using [employer] technology. This can lead to erroneous entry secondary to incorrect interpretation by the dictating instrument. HPI: 24-year-old male reported history of colitis presented from home due to abdominal pain with nausea and vomiting. He states his symptoms have been present for the past 3 days. He denies any diarrhea but did report mild constipation. No fevers. Pain is left-sided and nonradiating. He has no definitive diagnosis of colitis does not have a primary care doctor and has never had a colonoscopy. PMH: Reported ulcerative colitis PSH: Reviewed Social Hx: Patient smokes marijuana denies alcohol or other illicit drugs Allergies: Coded Allergies: No Known Allergies (Unverified , 01/15/18) COVID-19 Screening Contact w/high risk pt: No Recent Travel to affected area: No Experienced COVID-19 symptoms?: No COVID-19 Testing performed MEDICAL DIRECTOR OF HOSPICE: No Patient History Reviewed Nursing Documentation: PMH: Agreed; PSxH: Agreed Nursing Documentation-PMH Past Medical History: No History, Except For Hx Gastrointestinal Problems: Yes - Collitis Review of Systems All Other Systems: negative except mentioned in HPI Physical Exam Vital Signs Date Time Temp Pulse Resp B/P (MAP) Pulse Ox O2 Delivery O2 Flow Rate FiO2 02/27/20 15:42 98.2 67 16 120/71 (87) 100 Room Air Sp02 EP Interpretation: reviewed, normal General Appearance: well appearing, no apparent distress Head: normocephalic, atraumatic Eyes: bilateral eye PERRL, bilateral eye EOMI ENT: hearing grossly normal, moist mucus membranes Neck: full range of motion, supple Respiratory: lungs clear, normal breath sounds, no rhonchi, no respiratory distress, no retraction, no wheezing Cardiovascular #1: normal peripheral pulses, regular rate, rhythm, no murmur Gastrointestinal: soft, non-distended, no guarding, tenderness - Left-sided abdominal tenderness noted Neurologic: alert, oriented x3, no focal defects Skin: normal color, warm/dry Medical Decision Making Diagnostic Impression: Primary Impression: Abdominal pain Additional Impressions: UTI (urinary tract infection) Enteritis ER Course MDM: Differential diagnosis included not limited to colitis, gastroenteritis, diverticulitis, marijuana hyperemesis to name a few Clinical course-IV inserted, laboratory studies, pain control. Laboratory studies showed no significant abnormalities. Urinalysis with trace leukocytes possible UTI. After IV fluids and pain control patient feeling improved. No active vomiting. Will discharge home on oral antibiotic, follow-up PMD, regarding his history of ulcerative colitis there is no signs of ulcerative colitis. He has never had a definitive diagnosis of ulcerative colitis. CTs did show evidence of enteritis. Labs - Laboratory Tests Test 02/27/20 16:00 02/27/20 16:15 White Blood Count 7.6 K/UL (4.8-10.8) Red Blood Count 4.67 M/UL (4.70-6.10) L Hemoglobin 13.5 G/DL (14.2-18.0) L Hematocrit 44.2 % (42.0-52.0) Mean Corpuscular Volume 95 FL (80-99) Mean Corpuscular Hemoglobin 28.9 PG (27.0-31.0) Mean Corpuscular Hemoglobin Concent 30.5 G/DL (32.0-36.0) L Red Cell Distribution Width 12.2 % (11.6-14.8) Platelet Count 220 K/UL (150-450) Mean Platelet Volume 7.6 FL (6.5-10.1) Neutrophils (%) (Auto) 82.4 % (45.0-75.0) H Lymphocytes (%) (Auto) 11.6 % (20.0-45.0) L Monocytes (%) (Auto) 5.4 % (1.0-10.0) Eosinophils (%) (Auto) 0.1 % (0.0-3.0) Basophils (%) (Auto) 0.6 % (0.0-2.0) Sodium Level 137 MMOL/L (136-145) Potassium Level 3.7 MMOL/L (3.5-5.1) Chloride Level 99 MMOL/L (98-107) Carbon Dioxide Level 23 MMOL/L (21-32) Anion Gap 15 mmol/L (5-15) Blood Urea Nitrogen 9 mg/dL (7-18) Creatinine 0.9 MG/DL (0.55-1.30) Estimated Glomerular Filtration Rate > 60 mL/min (>60) Glucose Level 97 MG/DL (74-106) Calcium Level 9.5 MG/DL (8.5-10.1) Total Bilirubin 0.8 MG/DL (0.2-1.0) Aspartate Amino Transferase (AST) 35 U/L (15-37) Alanine Aminotransferase (ALT) 28 U/L (12-78) Alkaline Phosphatase 76 U/L (46-116) Total Protein 8.3 G/DL (6.4-8.2) H Albumin 4.3 G/DL (3.4-5.0) Globulin 4.0 g/dL Albumin/Globulin Ratio 1.1 (1.0-2.7) Lipase 99 U/L (73-393) Urine Color Yellow Urine Appearance Slightly cloudy Urine pH 6 (4.5-8.0) Urine Specific [place] 1.015 (1.005-1.035) Urine Protein 2+ (NEGATIVE) H Urine Glucose (UA) Negative (NEGATIVE) Urine Ketones 4+ (NEGATIVE) H Urine Blood 2+ (NEGATIVE) H Urine Nitrite Negative (NEGATIVE) Urine Bilirubin Negative (NEGATIVE) Urine Urobilinogen Normal MG/DL (0.0-1.0) Urine Leukocyte Esterase 1+ (NEGATIVE) H Urine RBC 10-15 /HPF (0 - 0) H Urine WBC 5-10 /HPF (0 - 0) H Urine Squamous Epithelial Cells Moderate /LPF (NONE/OCC) H Urine Bacteria Occasional /HPF (NONE) Urine Mucus Many /LPF (NONE/OCC) H On reevaluation: Patient in no acute distress and nontoxic-appearing Plan-discharge home with outpatient follow-up Last Vital Signs Date Time Temp Pulse Resp B/P (MAP) Pulse Ox O2 Delivery O2 Flow Rate FiO2 02/27/20 15:51 98.2 16 120/71 100 Room Air 02/27/20 15:51 67 Disposition: HOME, SELF-CARE Condition: Stable Scripts Docusate Sodium (DOCUSATE SODIUM) 100 Mg Tablet 100 MG ORAL TWICE A DAY, #14 TAB 0 Refills Prov: Gilbert Shah M.D. 02/27/20 Hydrocodone Bit/Acetaminophen 5-325* (NORCO 5-325 TABLET*) 1 Each Tablet 1 TAB ORAL Q6H PRN for FOR PAIN, #8 TAB 0 Refills Prov: Gilbert Shah M.D. 02/27/20 Ciprofloxacin Hcl* (CIPROFLOXACIN HCL*) 500 Mg Tablet 500 MG ORAL Q12H, #10 TAB 0 Refills Prov: Gilbert Shah M.D. 02/27/20 Ondansetron (Zofran) 4 Mg Tablet 4 MG ORAL Q8HR PRN for Nausea & Vomiting, #12 TAB Prov: Gilbert Shah M.D. 02/27/20 Referrals: Angelic BELTREREFERRING (PCP) Gilbert Shah M.D. Feb 27, 2020 16:36
--- NOTE | 2020-02-27 17:41 | Diagnostic Imaging Report ---
Clinical Indication: Abdominal pain Technique: No oral contrast utilized, per emergency room physician request IV administration nonionic contrast. Venous phase spiral acquisition obtained through the abdomen and pelvis. Multiplanar reconstructions were generated. Total dose length product 142 mGycm. CTDIvol(s) 2 mGy. Dose reduction achieved using automated exposure control Comparison: none Findings: Lack of enteric contrast limits assessment of the GI tract. No evidence of colonic diverticulosis or diverticulitis. What is probably a normal appendix is demonstrated. Some prominent gas and fluid filled small bowel loops in the left upper quadrant and midabdomen. There is enhancement of some small bowel mucosa, particularly of the proximal jejunum No generalized small bowel distention.. No free or loculated intraperitoneal gas or fluid is evident. The distal esophagus, stomach, duodenum are unremarkable. The liver, gallbladder, bile ducts, pancreas, spleen, adrenals, kidneys are unremarkable. No retroperitoneal or mesenteric mass or adenopathy. No pelvic mass or adenopathy. The bones are unremarkable. The included lung bases are clear. Impression: Limited assessment of the GI tract, due to lack of enteric contrast administration Scattered prominent gas and fluid-filled small bowel loops prominent small bowel mucosal enhancement, could indicate mild enteritis changes. No other acute abnormality The CT scanner at [facility] is accredited by the [employer] and the scans are performed using protocols designed to limit radiation exposure to as low as reasonably achievable to attain images of sufficient resolution adequate for diagnostic evaluation.
[2020-02-27] MEDS ORDERED: NORCO 5-325 TA1 EAC1 ORAL (18:14)
[2020-02-27] MEDS ORDERED: ZOFRAN4 M1 ORAL (18:14)
[2020-02-27] MEDS ORDERED: DOCUSATE SODIU100 M2 ORAL (18:14)
[2020-02-27] MEDS ORDERED: CIPROFLOXACIN500 M2 ORAL (18:14)
[2020-02-27 18:23] VITALS: BP 120/71
== END 2020-02-27 18:23 | disposition home or self-care (01) ==
LOC: EMR 15:55
DX: N39.0 Urinary tract infection, site not specified (principal); K52.9 Noninfective gastroenteritis and colitis, unspecified; R10.9 Unspecified abdominal pain
CPT/HCPCS: 36415; 74177; 80053; 81003; 83690; 85025; 96361; 96374; 96375; J2270; J2405; J7030; Q9967; Z7502; 99284

== ENCOUNTER 2020-03-04 19:29 | Emergency (ER) | payer OTHER ==
[~2020-03-04] VITALS: Ht 172.7 cm; Wt 52.2 kg
[~2020-03-04 19:29] MED LIST changes: +CIPROFLOXACIN500 M2 ORAL; +DOCUSATE SODIU100 M2 ORAL; +NORCO 5-325 TA1 EAC1 ORAL
[2020-03-04 19:30] VITALS: BP 113/54
--- NOTE | 2020-03-04 19:51 | Emergency Room Report ---
History of Present Illness General Chief Complaint: Abdominal Pain Source: Patient Present Illness HPI Patient is a 24-year-old male who presents after increased left-sided abdominal discomfort. He reports having prior history of recent ER visit with left-sided abdominal pain. He had finished course of ciprofloxacin.Patient had not been having any diarrhea. Patient had no prior history of inflammatory bowel disease. Patient had previously been diagnosed with enteritis. Had not been having any fever. Denies any dysuria or hematuria. Had recently been on antibiotics due to enteritis but had not been having any further diarrheal episodes. He reports smoking marijuana daily but states has not smoked in a few days. Denies any recent sick contacts. Had not had any known bad food exposure. No recent travel. Allergies: Coded Allergies: No Known Allergies (Unverified , 01/15/18) COVID-19 Screening Contact w/high risk pt: No Recent Travel to affected area: No Experienced COVID-19 symptoms?: No COVID-19 Testing performed HEARING IMPAIRED TEACHER: No Patient History Past Medical History: see triage record Reviewed Nursing Documentation: PMH: Agreed; PSxH: Agreed Nursing Documentation-PMH Hx Gastrointestinal Problems: Yes - colitis Review of Systems All Other Systems: negative except mentioned in HPI Physical Exam Vital Signs Date Time Temp Pulse Resp B/P (MAP) Pulse Ox O2 Delivery O2 Flow Rate FiO2 03/04/20 19:32 99.3 70 18 120/71 (87) 97 Room Air Sp02 EP Interpretation: reviewed, normal General Appearance: normal inspection, well appearing, no apparent distress, alert, GCS 15 Head: atraumatic ENT: normal ENT inspection, hearing grossly normal, normal voice Neck: normal inspection, full range of motion, supple, no bony tend Respiratory: normal inspection, lungs clear, normal breath sounds, no respiratory distress, no retraction, no wheezing Cardiovascular #1: regular rate, rhythm, no edema Gastrointestinal: normal inspection, normal bowel sounds, non tender, soft, no guarding, no hernia Genitourinary: no CVA tenderness Musculoskeletal: normal inspection, back normal, normal range of motion Neurologic: alert, motor strength/tone normal, barbering instructor III-XII nml as tested, oriented x3, responsive, speech normal, normal inspection Psychiatric: normal inspection, judgement/insight normal, mood/affect normal Medical Decision Making Diagnostic Impression: Primary Impression: Enteritis Additional Impression: Abdominal pain ER Course Patient presented for abdominal pain. Differential diagnoses included ischemic bowel, appendicitis, perforated viscus, abdominal aortic aneurysm, inferior myocardial infarction, viral gastroenteritis among others.Because patient's complexity and laboratory testing ordered. Laboratory testing showed . Electrolytes were unremarkable Lipase was normal White blood count was normal CT of the abdomen pelvis showed had recently been performed and patient does not appear to show any evidence of peritonitis or acute abdomen requiring repeat imaging. Patient appears to be stable for close outpatient follow up. The patient is advised to follow up with primary care doctor in 1-2 days. Patient is advised to return if any worsening condition or if any changes in status that are concerning. This report is dictated with [employer] airplane charter clerk software which may occasionally lead to discrepancies related to use of this software. Labs Test 03/04/20 19:41 03/04/20 19:57 Urine Color Yellow Urine Appearance Clear Urine pH 8 (4.5-8.0) Urine Specific [place] 1.010 (1.005-1.035) Urine Protein Negative (NEGATIVE) Urine Glucose (UA) Negative (NEGATIVE) Urine Ketones 2+ (NEGATIVE) Urine Blood Negative (NEGATIVE) Urine Nitrite Negative (NEGATIVE) Urine Bilirubin Negative (NEGATIVE) Urine Urobilinogen Normal MG/DL (0.0-1.0) Urine Leukocyte Esterase Negative (NEGATIVE) White Blood Count 10.5 K/UL (4.8-10.8) Red Blood Count 4.48 M/UL (4.70-6.10) Hemoglobin 13.2 G/DL (14.2-18.0) Hematocrit 42.0 % (42.0-52.0) Mean Corpuscular Volume 94 FL (80-99) Mean Corpuscular Hemoglobin 29.4 PG (27.0-31.0) Mean Corpuscular Hemoglobin Concent 31.3 G/DL (32.0-36.0) Red Cell Distribution Width 12.5 % (11.6-14.8) Platelet Count 251 K/UL (150-450) Mean Platelet Volume 7.4 FL (6.5-10.1) Neutrophils (%) (Auto) 79.6 % (45.0-75.0) Lymphocytes (%) (Auto) 14.5 % (20.0-45.0) Monocytes (%) (Auto) 5.0 % (1.0-10.0) Eosinophils (%) (Auto) 0.1 % (0.0-3.0) Basophils (%) (Auto) 0.8 % (0.0-2.0) Sodium Level 135 MMOL/L (136-145) Potassium Level 3.9 MMOL/L (3.5-5.1) Chloride Level 100 MMOL/L (98-107) Carbon Dioxide Level 28 MMOL/L (21-32) Anion Gap 7 mmol/L (5-15) Blood Urea Nitrogen 8 mg/dL (7-18) Creatinine 1.0 MG/DL (0.55-1.30) Estimat Glomerular Filtration Rate > 60 mL/min (>60) Glucose Level 98 MG/DL (74-106) Calcium Level 8.5 MG/DL (8.5-10.1) Total Bilirubin 0.5 MG/DL (0.2-1.0) Aspartate Amino Transf (AST/SGOT) 21 U/L (15-37) Alanine Aminotransferase (ALT/SGPT) 22 U/L (12-78) Alkaline Phosphatase 69 U/L (46-116) Troponin I 0.009 ng/mL (0.000-0.056) Total Protein 7.2 G/DL (6.4-8.2) Albumin 3.6 G/DL (3.4-5.0) Globulin 3.6 g/dL Albumin/Globulin Ratio 1.0 (1.0-2.7) Lipase 193 U/L (73-393) Last Vital Signs Date Time Temp Pulse Resp B/P (MAP) Pulse Ox O2 Delivery O2 Flow Rate FiO2 03/04/20 19:32 99.3 70 18 120/71 (87) 97 Room Air Status: improved Disposition: HOME, SELF-CARE Condition: Stable Scripts Famotidine* (Pepcid 20mg tablet*) 20 Mg Tablet 20 MG ORAL DAILY, #30 TAB 0 Refills Prov: Kingsley Lara MD 03/04/20 Dicyclomine Hcl* (DICYCLOMINE HCL*) 10 Mg Capsule 10 MG ORAL QID, #20 CAP Prov: Kingsley Lara MD 03/04/20 Referrals: Angelic BELTRE,REFERRING (PCP) Kingsley Lara MD Mar 04, 2020 19:51
[2020-03-04] MEDS ORDERED: Dicyclomine HCl 10mg/5ml oral soln ORAL ONE (20:00)
[2020-03-04 20:15] LABS: BILIRUBIN, URINE NEGATIVE (NEGATIVE); GLUCOSE, URINE (UA) NEGATIVE (NEGATIVE); KETONES,URINE 2+ (NEGATIVE); LEUKOCYTE ESTERASE ,URINE NEGATIVE (NEGATIVE); NITRITE,URINE NEGATIVE (NEGATIVE); PH,URINE 8 (4.5-8.0); PROTEIN,URINE NEGATIVE (NEGATIVE); UROBILINOGEN,URINE NORMAL MG/DL (0.0-1.0)
[2020-03-04 20:18] LABS: APPEARANCE,URINE CLEAR; COLOR,URINE YELLOW
[2020-03-04 20:45] LABS: ANION GAP 7 mmol/L (5-15); BLOOD UREA NITROGEN 8 mg/dL (7-18); CALCIUM 8.5 MG/DL (8.5-10.1); CARBON DIOXIDE 28 MMOL/L (21-32); CHLORIDE 100 MMOL/L (98-107); POTASSIUM 3.9 MMOL/L (3.5-5.1); SODIUM 135 MMOL/L (136-145)
[2020-03-04 20:49] LABS: ALANINE AMINOTRANSFERASE 22 U/L (12-78); ALBUMIN 3.6 G/DL (3.4-5.0); ALKALINE PHOSPHATASE 69 U/L (46-116); ASPARTATE AMINO TRANSFERASE 21 U/L (15-37); BILIRUBIN,TOTAL 0.5 MG/DL (0.2-1.0)
[2020-03-04 20:52] LABS: BASOPHILS % (AUTO) 0.8 % (0.0-2.0); EOSINOPHILS % (AUTO) 0.1 % (0.0-3.0); HEMOGLOBIN 13.2 G/DL (14.2-18.0); LYMPHOCYTES % (AUTO) 14.5 % (20.0-45.0); MEAN CORPUSCULAR VOLUME 94 FL (80-99); NEUTROPHILS % (AUTO) 79.6 % (45.0-75.0); PLATELET COUNT 251 K/UL (150-450); RED BLOOD COUNT 4.48 M/UL (4.70-6.10); RED CELL DISTRIBUTION WIDTH 12.5 % (11.6-14.8); WHITE BLOOD COUNT 10.5 K/UL (4.8-10.8)
[2020-03-04] MEDS ORDERED: FAMOTIDINE20 MG ORAL (21:17)
[2020-03-04] MEDS ORDERED: DICYCLOMINE HCL10 MG ORAL (21:17)
[2020-03-04 21:20] VITALS: BP 113/54
== END 2020-03-04 21:20 | disposition home or self-care (01) ==
LOC: EMR 19:42
DX: R10.9 Unspecified abdominal pain (principal); Z88.8 Allergy status to other drugs, medicaments and biological substances
CPT/HCPCS: 36415; 80053; 81003; 83690; 84484; 85025; 96361; 96374; 96375; J2405; J7030; S0028; Z7502; 99284

== ENCOUNTER 2020-04-23 09:54 | Emergency (ER) | payer OTHER ==
[~2020-04-23] VITALS: Ht 172.7 cm; Wt 52.6 kg
[~2020-04-23 09:54] MED LIST changes: +DICYCLOMINE HCL10 MG ORAL
--- NOTE | 2020-04-23 10:16 | NUR ---
ED Nurse Note: pt unable to provide urine sample at this time.
[2020-04-23 10:24] VITALS: BP 125/79
[2020-04-23] MEDS ORDERED: Mylanta II UD 30ml ORAL ONE (11:00)
[2020-04-23] MEDS ORDERED: Dicyclomine HCl 10mg/5ml oral soln ORAL ONE (11:00)
[2020-04-23] MEDS ORDERED: Lidocaine 2% Visc 15ml soln ORAL ONE (11:00)
--- NOTE | 2020-04-23 11:04 | NUR ---
ED Nurse Note: x-ray at bedside.
[2020-04-23 11:15] LABS: BASOPHILS % (AUTO) 1.2 % (0.0-2.0); EOSINOPHILS % (AUTO) 0.2 % (0.0-3.0); HEMATOCRIT 43.5 % (42.0-52.0); HEMOGLOBIN 14.1 G/DL (14.2-18.0); LYMPHOCYTES % (AUTO) 21.3 % (20.0-45.0); MEAN CORPUSCULAR VOLUME 91 FL (80-99); MONOCYTES % (AUTO) 8.4 % (1.0-10.0); NEUTROPHILS % (AUTO) 68.9 % (45.0-75.0); PLATELET COUNT 216 K/UL (150-450); RED CELL DISTRIBUTION WIDTH 11.6 % (11.6-14.8); WHITE BLOOD COUNT 5.7 K/UL (4.8-10.8)
[2020-04-23 11:25] LABS: ANION GAP 8 mmol/L (5-15); BLOOD UREA NITROGEN 10 mg/dL (7-18); CALCIUM 9.2 MG/DL (8.5-10.1); CARBON DIOXIDE 27 MMOL/L (21-32); CHLORIDE 101 MMOL/L (98-107); POTASSIUM 3.4 MMOL/L (3.5-5.1); SODIUM 136 MMOL/L (136-145)
[2020-04-23 11:30] LABS: ALANINE AMINOTRANSFERASE 37 U/L (12-78); ALBUMIN 4.2 G/DL (3.4-5.0); ALBUMIN/GLOBULIN RATIO 1.1 (1.0-2.7); ALKALINE PHOSPHATASE 63 U/L (46-116); ASPARTATE AMINO TRANSFERASE 29 U/L (15-37); BILIRUBIN,TOTAL 0.7 MG/DL (0.2-1.0)
--- NOTE | 2020-04-23 11:53 | NUR ---
ED Nurse Note: Urine sent to lab.
[2020-04-23 12:10] LABS: APPEARANCE,URINE SLIGHTLY CLOUDY; BILIRUBIN, URINE NEGATIVE (NEGATIVE); GLUCOSE, URINE (UA) NEGATIVE (NEGATIVE); KETONES,URINE 4+ (NEGATIVE); LEUKOCYTE ESTERASE ,URINE 1+ (NEGATIVE); NITRITE,URINE NEGATIVE (NEGATIVE); PH,URINE 6 (4.5-8.0); PROTEIN,URINE 1+ (NEGATIVE); UROBILINOGEN,URINE 1 MG/DL (0.0-1.0)
[2020-04-23 12:11] LABS: COLOR,URINE YELLOW
--- NOTE | 2020-04-23 12:13 | Diagnostic Imaging Report ---
Indication: Abdominal tenderness. Technique: One view abdomen Findings: The bowel gas pattern is nonobstructive. Osseous structures are unremarkable. No free fluid. No gross free air. No organomegaly. Impression: Negative one view abdomen..
[2020-04-23] MEDS ORDERED: cefTRIAXone 1 GM in NS 55 ML IVPB ONE (12:45)
[2020-04-23] MEDS ORDERED: ZOFRAN4 M3 ORAL (13:21)
[2020-04-23] MEDS ORDERED: CEPHALEXIN500 MG ORAL (13:21)
[2020-04-23 13:52] VITALS: BP 124/78
--- NOTE | 2020-04-23 13:52 | NUR ---
ER DISCHARGE NOTE: Patient is cleared to be discharged per ERMD, pt is aox4, on room air, with stable vital signs. pt was given dc and prescription instructions, pt was able to verbalize understanding, pt id band and iv site removed without complications. pt is able to ambulate with steady gait. pt took all belongings.
--- NOTE | 2020-04-28 06:20 | Emergency Room Report ---
History of Present Illness General Chief Complaint: Abdominal Pain Source: Patient Present Illness HPI Patient is a 24-year-old male presents after increased left-sided abdominal pain and vomiting. Reports having some diarrhea. Thinks may have been started after bad food exposure. He denies any recent travel. Reports having similar episodes in the past. Denies any prior intestinal surgery. Denies any hematemesis or bloody stools. Pain is predominantly to the left lower quadrant. Did not radiate. 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 Patient History Past Medical History: see triage record Reviewed Nursing Documentation: PMH: Agreed; PSxH: Agreed Nursing Documentation-PMH Past Medical History: No History, Except For Hx Gastrointestinal Problems: Yes - colitis Review of Systems All Other Systems: negative except mentioned in HPI Physical Exam Sp02 EP Interpretation: reviewed, normal General Appearance: normal inspection, well appearing, no apparent distress, alert, GCS 15, non-toxic Head: atraumatic ENT: normal ENT inspection, hearing grossly normal, normal voice Neck: normal inspection, full range of motion, supple, no bony tend Respiratory: normal inspection, lungs clear, normal breath sounds, no respiratory distress, no retraction, no wheezing Cardiovascular #1: regular rate, rhythm, no edema Gastrointestinal: normal inspection, normal bowel sounds, soft, no guarding, no hernia, other - Left lower quadrant tenderness Genitourinary: no CVA tenderness Musculoskeletal: normal inspection, back normal, normal range of motion Neurologic: alert, motor strength/tone normal, instructor technical training III-XII nml as tested, oriented x3, responsive, speech normal, normal inspection Psychiatric: normal inspection, judgement/insight normal, mood/affect normal Medical Decision Making Diagnostic Impression: Primary Impression: UTI (urinary tract infection) Additional Impression: Enteritis ER Course Patient presented for abdominal pain. Differential diagnosis include was not limited to colitis, renal stone, gastroenteritis, diverticulitis among others. Laboratory testing was ordered due to patient's complexity. Patient had similar symptoms in the past and had previous imaging studies performed. Laboratory testing showed some evidence of urinary infection. Patient was given IV antiemetics as well as IV fluids. He was given antibiotics due to a urinary infection. Patient observed in the emergency department was noted to have improvement in his symptoms. He said he felt much better and wanted to go home. Patient was given prescriptions for antiemetics. He is advised to follow -up with his primary care physician for recheck in 1 to 2 days. He is advised to return if worse. This medical record is generated with [facility] lab coordinator software. There may be some lab coordinator discrepancies related to use of this software Labs Test 04/23/20 11:00 04/23/20 11:53 White Blood Count 5.7 K/UL (4.8-10.8) Red Blood Count 4.80 M/UL (4.70-6.10) Hemoglobin 14.1 G/DL (14.2-18.0) Hematocrit 43.5 % (42.0-52.0) Mean Corpuscular Volume 91 FL (80-99) Mean Corpuscular Hemoglobin 29.4 PG (27.0-31.0) Mean Corpuscular Hemoglobin Concent 32.4 G/DL (32.0-36.0) Red Cell Distribution Width 11.6 % (11.6-14.8) Platelet Count 216 K/UL (150-450) Mean Platelet Volume 8.1 FL (6.5-10.1) Neutrophils (%) (Auto) 68.9 % (45.0-75.0) Lymphocytes (%) (Auto) 21.3 % (20.0-45.0) Monocytes (%) (Auto) 8.4 % (1.0-10.0) Eosinophils (%) (Auto) 0.2 % (0.0-3.0) Basophils (%) (Auto) 1.2 % (0.0-2.0) Sodium Level 136 MMOL/L (136-145) Potassium Level 3.4 MMOL/L (3.5-5.1) Chloride Level 101 MMOL/L (98-107) Carbon Dioxide Level 27 MMOL/L (21-32) Anion Gap 8 mmol/L (5-15) Blood Urea Nitrogen 10 mg/dL (7-18) Creatinine 1.0 MG/DL (0.55-1.30) Estimat Glomerular Filtration Rate > 60 mL/min (>60) Glucose Level 105 MG/DL (74-106) Calcium Level 9.2 MG/DL (8.5-10.1) Total Bilirubin 0.7 MG/DL (0.2-1.0) Aspartate Amino Transf (AST/SGOT) 29 U/L (15-37) Alanine Aminotransferase (ALT/SGPT) 37 U/L (12-78) Alkaline Phosphatase 63 U/L (46-116) Troponin I 0.000 ng/mL (0.000-0.056) Total Protein 7.9 G/DL (6.4-8.2) Albumin 4.2 G/DL (3.4-5.0) Globulin 3.7 g/dL Albumin/Globulin Ratio 1.1 (1.0-2.7) Lipase 88 U/L (73-393) Urine Color Yellow Urine Appearance Slightly cloudy Urine pH 6 (4.5-8.0) Urine Specific [place] 1.025 (1.005-1.035) Urine Protein 1+ (NEGATIVE) Urine Glucose (UA) Negative (NEGATIVE) Urine Ketones 4+ (NEGATIVE) Urine Blood 2+ (NEGATIVE) Urine Nitrite Negative (NEGATIVE) Urine Bilirubin Negative (NEGATIVE) Urine Urobilinogen 1 MG/DL (0.0-1.0) Urine Leukocyte Esterase 1+ (NEGATIVE) Urine RBC 2-4 /HPF (0 - 0) Urine WBC 15-20 /HPF (0 - 0) Urine Squamous Epithelial Cells Few /LPF (NONE/OCC) Urine Bacteria Occasional /HPF (NONE) Status: improved Disposition: HOME, SELF-CARE Condition: Stable Scripts Ondansetron* (ZOFRAN*) 4 Mg Tablet 4 MG ORAL Q6H PRN for Nausea & Vomiting, #28 TAB Prov: Kingsley Lara MD 04/23/20 Cephalexin* (KEFLEX*) 500 Mg Capsule 500 MG ORAL EVERY 6 HOURS, #28 CAP Prov: Kingsley Lara MD 04/23/20 Referrals: Angelic BELTRE,REFERRING (PCP) Patient Instructions: Abdominal Pain, Adult Additional Instructions: Follow up with your doctor for recheck of urinary infection, Return if worse. Kingsley Lara MD Apr 28, 2020 06:20
== END 2020-04-23 13:52 | disposition home or self-care (01) ==
LOC: EMR 10:19
DX: N39.0 Urinary tract infection, site not specified (principal); K52.9 Noninfective gastroenteritis and colitis, unspecified
CPT/HCPCS: 36415; 74018; 80053; 81003; 83690; 84484; 85025; 87086; 96365; 96375; J0696; J2405; S0028; Z7502; 99284